=== PATIENT | female | born 2000 | race American Indian/Alaskan Native ===

== ENCOUNTER 2022-04-24 15:50 | Emergency (ER) | payer MEDICAID ==
[2022-04-24 15:59] VITALS: BP 130/70
[2022-04-24 17:11] LABS: Basophils % (Auto) 0.2 % (0.0-1.8); Eosinophils % (Auto) 0.5 % (0.0-4.3); Lymphocytes # (Auto) 1.4 K/mm3 (1.2-5.4); Mean Corpuscular HGB Conc 32 % (30-34); Mean Corpuscular Volume 78 fl (79-97); Monocytes # (Auto) 0.6 K/mm3 (0.0-0.8); Monocytes % (Auto) 8.8 % (0.0-7.3); Platelet Count 244 K/mm3 (140-440); Red Blood Count 4.87 M/mm3 (3.65-5.03); Red Cell Distribution Width 16.1 % (13.2-15.2)
[2022-04-24 17:27] LABS: Alanine Aminotransferase 41 units/L (7-56); Albumin 4.2 g/dL (3.9-5); Blood Urea Nitrogen 5 mg/dL (7-17); Calcium 9.6 mg/dL (8.4-10.2); Hemolysis Index 0
[2022-04-24 17:30] LABS: BUN/Creatinine Ratio 10
[2022-04-24 21:33] LABS: Bacteria,Urine 3+ /HPF (Negative); Mucus,Urine 3+ /HPF
[2022-04-24 21:45] LABS: Color,Urine Yellow (Yellow)
[2022-04-24 21:46] LABS: Bilirubin,Urine 1+ (Negative)
[2022-04-24 21:47] LABS: Blood,Urine 2+ (Negative); Protein,Urine <30 mg dL mg/dL (Negative)
[2022-04-24 21:52] LABS: Ictotest,Urine Negative (Negative)
== END 2022-04-25 03:00 | disposition left against medical advice (07) ==
LOC: ED 15:50
DX: R11.10 Vomiting, unspecified (principal); R07.9 Chest pain, unspecified; Z53.21 Procedure and treatment not carried out due to patient leaving prior to being seen by health care provider
CPT/HCPCS: 36415; 80053; 81001; 85025; 87076; 87086; 87186